=== PATIENT | male | born 1985 | race Native Hawaiian/Other Pacific Islander ===

== ENCOUNTER 2024-03-04 16:53 | Emergency (ER) | payer OTHER ==
[2024-03-04 17:07] VITALS: BP 180/100; O2SAT 98
--- NOTE | 2024-03-04 18:01 | ED Physician Documentation ---
PD HPI BACK PAIN - Stated complaint Stated Complaint: BACK PX - Chief complaint Chief Complaint: Back Pain - History obtained from History obtained from: Patient - History of Present Illness Timing - onset: Yesterday (inceased pain right lower back yesterday without unusual activity nor injury. Typically active at work and does work out. Has had recurring pain in area for few months, treated with Ibuprofen PRn and heat, tapered activity. Not lasted more than few days prior. Today is worse but concern of recurrent) Timing - details: Gradual onset, Still present, Intermittant Location: Lower, Right Quality: Pain, Spasm Associated symptoms: No: Fever, Weakness, Numbness, Incontinent of urine Worsened by: Movement, Lifting, Twisting, Palpation Similar symptoms before: No diagnosis Review of Systems Constitutional: denies: Fever, Chills GI: denies: Abdominal Pain, Vomiting, Constipation, Diarrhea : denies: Dysuria, Frequency, Hematuria Skin: denies: Rash PD PAST MEDICAL HISTORY - Past Medical History Past Medical History: No Cardiovascular: None Respiratory: None Neuro: None Endocrine/Autoimmune: None GI: None : None HEENT: None Psych: None Musculoskeletal: None Derm: None - Past Surgical History Past Surgical History: No - Present Medications Home Medications: Ambulatory Orders Medication Instructions Recorded Confirmed HYDROcod/ACETAM 5/325 [Warren 5/325] 1 ea PO Q6H PRN #18 tablet 03/04/24 Lidocaine 4 % TP DAILY PRN #20 patch 03/04/24 Meloxicam [Mobic] 7.5 mg PO BID 20 Days #40 tablet 03/04/24 methocarbamoL [Robaxin] 500 mg PO TID #45 tablet 03/04/24 - Allergies Allergies/Adverse Reactions: Allergies Allergy/AdvReac Type Severity Reaction Status Date / Time No Known Drug Allergies Allergy Verified 03/04/24 16:57 - Social History Does the pt smoke?: No Smoking Status: Never smoker Does the pt drink ETOH?: No Does the pt have substance abuse?: No - Immunizations Immunizations are current?: Yes - POLST Patient has POLST: No PD ED PE NORMAL - Vitals Vital signs reviewed: Yes - General General: Alert and oriented X 3, Well developed/nourished - Back Back: No CVA TTP, No spinal TTP (tender in muscle to right paralumbar area. ) - Derm Derm: Normal color, Warm and dry - Neuro Neuro: Alert and oriented X 3, No motor deficit, No sensory deficit Results - Vitals Vitals: Oxygen O2 Source Room air PD Medical Decision Making - ED course Complexity details: considered differential (seems muscular back pain. No neuro symtpoms. I shared with him the intent of general back pain guidelines to treat myofascial and not indications for imaging. He agrees. ), d/w patient ED course: will treat with more consistent NSAIDS and add muscle relaxant and meds for pain, Tylenol or more. To see PCP though for ?PT since has been recurring. Departure - Departure Disposition: Home, Self Care Clinical Impression: Acute low back pain Condition: Stable Record reviewed to determine appropriate education?: Yes Instructions: ED Spasm Back No Trauma Follow-Up: CAESAR Rivas [Provider Group] Prescriptions: Lidocaine 4 % TP DAILY PRN #20 patch PRN Reason: Pain 1-4 Meloxicam [Mobic] 7.5 mg PO BID 20 Days #40 tablet HYDROcod/ACETAM 5/325 [Warren 5/325] 1 ea PO Q6H PRN #18 tablet PRN Reason: Pain methocarbamoL [Robaxin] 500 mg PO TID #45 tablet Comments: Back pain even recurrently is relatively common and reasonably unlikely to source from more significant causes such as herniated disks etc. Most commonly is soft tissue. Back pain treatment guidelines suggest trying regular treatments with anti-inflammatories and muscle relaxants and pain medicine in conjunction with physical modalities such as physical therapy chiropractic or massage. I wrote prescriptions for some anti-inflammatory muscle relaxant to use regularly over the next 2 or 3 weeks. In addition to that add Tylenol or hydrocodone if needed for worse pains at times. Follow-up with your primary care for referral potentially for physical therapy. Reduced lifting bending and heavy exercise over the next week. I sent your prescriptions to your preferred pharmacy. I am prescribing a short course of narcotic pain medication for you. These are potentially dangerous and addictive medications that should be used carefully. These medications may constipate you. Take an [id number] stool softener such as docusate twice daily with plenty of water while taking these m edications. If you go 24 hours without a bowel movement, take [id number] MiraLAX, per package instructions. Do not drink or drive while taking these medications. If you received narcotic or sedating medications while in the emergency department do not drive for 24 hours. Store this medication in a safe, secure place and out of reach of children. It is a violation of federal law to give or sell this medication to another person or to use in a manner other than prescribed. The ED will not refill narcotic prescriptions, including prescriptions lost or stolen. You can dispose of unwanted medications at the [facility] office or at several pharmacies such as [facility]. Forms: Activity restrictions Discharge Date/Time: 03/04/24 19:11
[2024-03-04] MEDS: methocarbamoL 500 MG TABLET PO STA (18:57)
[2024-03-04] MEDS: HYDROcod/ACETAM 5/325 MG TABLET PO STA (18:57)
[2024-03-04] MEDS: IBUPROFEN 800 MG TABLET PO STA (18:57)
[2024-03-04] MEDS: HYDROcod/ACET 5/325 Prepack 4 PO STA (18:58)
== END 2024-03-04 19:11 | disposition home or self-care (01) ==
LOC: ED 16:53
DX: M54.50 Low back pain, unspecified (principal)
CPT/HCPCS: 99283; A9270